=== PATIENT | male | born 1950 | race Two or more races ===

== ENCOUNTER → 2020-01-28 | Outpatient (CLI) | payer OTHER | END | disposition home or self-care (01) | LOC: RAH 12:19 | PROVIDERS: ATTEND Urology | DX: M19.012 Primary osteoarthritis, left shoulder (principal); M19.011 Primary osteoarthritis, right shoulder; M16.0 Bilateral primary osteoarthritis of hip; M17.0 Bilateral primary osteoarthritis of knee; M19.072 Primary osteoarthritis, left ankle and foot; M19.071 Primary osteoarthritis, right ankle and foot; M47.816 Spondylosis without myelopathy or radiculopathy, lumbar region; C61 Malignant neoplasm of prostate | CPT/HCPCS: 78306; A9503 ==

== ENCOUNTER → 2020-02-11 | Outpatient (CLI) | payer OTHER ==
[~2020-02-11] MED LIST: IOHEXOL 350 MG/ML 100ML INFUS..BTL IV ONE
== END | disposition home or self-care (01) ==
LOC: RAH 09:29
PROVIDERS: ATTEND Urology
DX: C61 Malignant neoplasm of prostate (principal); K44.9 Diaphragmatic hernia without obstruction or gangrene; M47.815 Spondylosis without myelopathy or radiculopathy, thoracolumbar region; I70.0 Atherosclerosis of aorta
CPT/HCPCS: 74177; Q9967

== ENCOUNTER → 2022-09-23 | Outpatient (CLI) | payer OTHER | END | disposition home or self-care (01) | LOC: RAH 14:11 | PROVIDERS: ATTEND Internal Medicine | DX: R51.9 Headache, unspecified (principal) | CPT/HCPCS: 70450 ==